=== PATIENT | female | born 1995 | race Caucasian/White ===

== ENCOUNTER 2018-10-05 18:27 | Emergency (ER) | payer SELFPAY ==
[~2018-10-05] VITALS: Ht 162.6 cm; Wt 59.0 kg
[2018-10-05] MEDS ORDERED: IV NORMAL SALINE 1000ML BAG 1,000 ML IV SCH (19:22)
[2018-10-05] MEDS ORDERED: ACETAMINOPHEN 500 MG TABLET PO ONE (19:30)
[2018-10-05] MEDS ORDERED: MORPHINE SULFATE 4 MG/ML VIAL. IV/SQ PRN (19:30)
[2018-10-05] MEDS ORDERED: cefTRIAXone IV Push 1 GM VIAL. IVP ONE (19:30)
[2018-10-05] MEDS ORDERED: AZITHRMYCN 500MG IVPB FOR OMNI 250 ML IV ONE (19:30)
[2018-10-05 19:38] LABS: BASO % 0 % (0-3); EOS % 0 % (0-3); HEMATOCRIT 36.7 % (36.0-47.0); HEMOGLOBIN 12.5 g/dL (12.0-15.5); LYMPH # 0.8 x10^3/uL (1.0-4.8); LYMPH % 8 % (24-48); MEAN CORPUSCULAR HEMOGLOBIN 31 pg (25-35); MEAN CORPUSCULAR HGB CONC 34 g/dL (31-37); MEAN CORPUSCULAR VOLUME 90 fL (79-100); MONO # 0.7 x10^3/uL (0.0-1.1); MONO % 7 % (0-9); NEUT % 86 % (31-73); PLATELET COUNT 236 x10^3/uL (140-400); RED BLOOD COUNT 4.09 x10^6/uL (3.50-5.40); RED CELL DISTRIBUTION WIDTH 13.2 % (11.5-14.5); WHITE BLOOD COUNT 10.5 x10^3/uL (4.0-11.0)
[2018-10-05 19:48] LABS: PROTHROMBIN TIME PATIENT 14.9 SEC (11.7-14.0)
[2018-10-05 19:51] LABS: CREATININE 0.8 mg/dL (0.6-1.0); GFR 89.7; POTASSIUM 4.6 mmol/L (3.5-5.1)
[2018-10-05 19:57] LABS: ALBUMIN 2.9 g/dL (3.4-5.0); ALBUMIN/GLOBULIN RATIO 0.7 (1.0-1.7); TOTAL BILIRUBIN 0.2 mg/dL (0.2-1.0); TOTAL PROTEIN 6.8 g/dL (6.4-8.2)
[2018-10-05 20:05] LABS: % BANDS 7 % (0-9); % LYMPHS 10 % (24-48); % MONOS 3 % (0-10); % SEGS 80 % (35-66); PLT ESTIMATE ADEQUATE (ADEQUATE)
[2018-10-05] MEDS ORDERED: IBUPROFEN 400 MG TABLET. PO ONE (22:00)
[2018-10-05 23:03] VITALS: BP 107/63
[2018-10-05 23:43] LABS: BILIRUBIN,URINE NEGATIVE (NEG); CLARITY,URINE CLEAR; COLOR,URINE YELLOW; NITRITE,URINE NEGATIVE (NEG); PROTEIN,URINE NEGATIVE (NEG-TRACE); UROBILINOGEN,URINE 0.2 mg/dL (0.2 mg/dL)
[2018-10-05 23:47] LABS: RBC,URINE 0 /HPF (0-2); SQUAMOUS EPITHELIAL CELL,UR MOD /LPF
[2018-10-05 23:48] LABS: BACTERIA,URINE 0 /HPF (0-FEW); BARBITURATES NEG (NEG); BENZODIAZEPINES NEG (NEG); CANNABINOIDS NEG (NEG); COCAINE NEG (NEG); METHADONE NEG (NEG); OPIATES POS (NEG); PHENCYCLIDINE NEG (NEG)
[2018-10-05 23:49] LABS: AMPHETAMINE/METHAMPHETAMINE POS (NEG)
[2018-10-06] MEDS ORDERED: CLIN300C8 PO (00:21)
--- NOTE | 2018-10-06 00:21 | PHYS DOC ---
Past Medical History Past Medical History: No Pertinent History Past Surgical History: Other Additional Past Surgical Histo: UKNOWN Alcohol Use: Rarely Drug Use: None Adult General Chief Complaint Chief Complaint: ABDOMINAL PAIN HPI HPI Patient is a 23 year old female who presents with severe pelvic pain. Patient states this pain has been going on for 2-3 days. She states she was seen at [facility] and was admitted for infection in her uterus and fallopian tubes. She states she did not like the care she was receiving hence walked out AGAINST MEDICAL ADVICE yesterday. Patient states she has continued having the pain. Denies any chance she is . Denies any nausea or vomiting. Review of Systems Review of Systems Constitutional: Denies fever or chills [] Eyes: Denies change in visual acuity, redness, or eye pain [] HENT: Denies nasal congestion or sore throat [] Respiratory: Denies cough or shortness of breath [] Cardiovascular: No additional information not addressed in HPI [] GI: Reports pelvic pain, denies nausea, vomiting, bloody stools or diarrhea [] : Denies dysuria or hematuria [] Musculoskeletal: Denies back pain or joint pain [] Integument: Denies rash or skin lesions [] Neurologic: Denies headache, focal weakness or sensory changes [] All other systems were reviewed and found to be within normal limits, except as documented in this note. Current Medications Current Medications Current Medications Medications (Trade) Dose Ordered Sig/Sd Start Time Stop Time Status Last Admin Dose Admin Acetaminophen (Tylenol) 1,000 mg 1X ONCE 10/05/18 19:30 10/05/18 19:35 DC 10/05/18 19:48 1,000 MG Azithromycin 250 ml @ 250 mls/hr 1X ONCE 10/05/18 19:30 10/05/18 20:29 DC 10/05/18 22:02 250 MLS/HR Ceftriaxone Sodium (Rocephin) 1 gm 1X ONCE 10/05/18 19:30 10/05/18 19:35 DC 10/05/18 19:49 1 GM Ibuprofen (Motrin) 800 mg 1X ONCE 10/05/18 22:00 10/05/18 22:01 DC 10/05/18 22:02 800 MG Ketorolac Tromethamine (Toradol 30mg Vial) 30 mg 1X ONCE 10/06/18 01:30 10/06/18 01:31 DC Levofloxacin/ Dextrose 150 ml @ 100 mls/hr 1X ONCE 10/05/18 19:30 10/05/18 20:59 DC 10/05/18 20:45 100 MLS/HR Metronidazole 100 ml @ 100 mls/hr 1X ONCE 10/05/18 19:30 10/05/18 20:29 DC 10/05/18 19:55 100 MLS/HR Morphine Sulfate (Morphine Sulfate) 5 mg 1X ONCE 10/06/18 01:30 10/06/18 01:31 DC 10/06/18 01:20 5 MG Sodium Chloride 1,000 ml @ 1,770 mls/hr Q34M 10/05/18 19:22 10/05/18 20:22 DC Allergies Allergies Allergies Coded Allergies Type Severity Reaction Last Updated Verified No Known Drug Allergies 08/31/14 No Physical Exam Physical Exam Constitutional: Well developed, well nourished, no acute distress, non-toxic appearance. [] HENT: Normocephalic, atraumatic, bilateral external ears normal, oropharynx moist, no oral exudates, nose normal. [] Eyes: PERRLA, EOMI, conjunctiva normal, no discharge. [] Neck: Normal range of motion, no tenderness, supple, no stridor. [] Cardiovascular:Tachycardia Lungs & Thorax: Bilateral breath sounds clear to auscultation [] Abdomen: Bowel sounds normal, soft, no masses, no pulsatile masses. [] Pelvic exam External pelvic appears normal, cervix is, closed, no CMT, tenderness to bilateral adnexal, trace amount of pink discharge in the vaginal vault. Skin: Warm, dry, no erythema, no rash. [] Back: No tenderness, no CVA tenderness. [] Extremities: No tenderness, no cyanosis, no clubbing, ROM intact, no edema. [] Neurologic: Alert and oriented X 3, normal motor function, normal sensory function, no focal deficits noted. [] Psychologic: Affect normal, judgement normal, mood normal. [] Current Patient Data Vital Signs Vital Signs Date Time Temp Pulse Resp B/P (MAP) Pulse Ox O2 Delivery O2 Flow Rate FiO2 10/06/18 01:20 9 10/05/18 23:03 124 107/63 (78) 99 Room Air 10/05/18 22:05 98.9 98.9 Lab Values Laboratory Tests Test 10/05/18 19:00 10/05/18 23:34 White Blood Count 10.5 x10^3/uL (4.0-11.0) Red Blood Count 4.09 x10^6/uL (3.50-5.40) Hemoglobin 12.5 g/dL (12.0-15.5) Hematocrit 36.7 % (36.0-47.0) Mean Corpuscular Volume 90 fL (79-100) Mean Corpuscular Hemoglobin 31 pg (25-35) Mean Corpuscular Hemoglobin Concent 34 g/dL (31-37) Red Cell Distribution Width 13.2 % (11.5-14.5) Platelet Count 236 x10^3/uL (140-400) Neutrophils (%) (Auto) 86 % (31-73) H Lymphocytes (%) (Auto) 8 % (24-48) L Monocytes (%) (Auto) 7 % (0-9) Eosinophils (%) (Auto) 0 % (0-3) Basophils (%) (Auto) 0 % (0-3) Neutrophils # (Auto) 9.0 x10^3uL (1.8-7.7) H Lymphocytes # (Auto) 0.8 x10^3/uL (1.0-4.8) L Monocytes # (Auto) 0.7 x10^3/uL (0.0-1.1) Eosinophils # (Auto) 0.0 x10^3/uL (0.0-0.7) Basophils # (Auto) 0.0 x10^3/uL (0.0-0.2) Segmented Neutrophils % 80 % (35-66) H Band Neutrophils % 7 % (0-9) Lymphocytes % 10 % (24-48) L Monocytes % 3 % (0-10) Platelet Estimate Adequate (ADEQUATE) Prothrombin Time 14.9 SEC (11.7-14.0) H Prothrombin Time INR 1.2 (0.8-1.1) H PTT 35 SEC (24-38) Sodium Level 138 mmol/L (136-145) Potassium Level 4.6 mmol/L (3.5-5.1) Chloride Level 103 mmol/L (98-107) Carbon Dioxide Level 28 mmol/L (21-32) Anion Gap 7 (6-14) Blood Urea Nitrogen 10 mg/dL (7-20) Creatinine 0.8 mg/dL (0.6-1.0) Estimated GFR (Cockcroft-Gault) 89.7 BUN/Creatinine Ratio 13 (6-20) Glucose Level 121 mg/dL (70-99) H Lactic Acid Level 1.4 mmol/L (0.4-2.0) Calcium Level 9.0 mg/dL (8.5-10.1) Total Bilirubin 0.2 mg/dL (0.2-1.0) Aspartate Amino Transferase (AST) 13 U/L (15-37) L Alanine Aminotransferase (ALT) 13 U/L (14-59) L Alkaline Phosphatase 73 U/L (46-116) Total Protein 6.8 g/dL (6.4-8.2) Albumin 2.9 g/dL (3.4-5.0) L Albumin/Globulin Ratio 0.7 (1.0-1.7) L Lipase 61 U/L (73-393) L Procalcitonin < 0.10 ng/mL (0.00-0.10) Ethyl Alcohol Level < 10 mg/dL (0-10) Urine Collection Type Unknown Urine Color Yellow Urine Clarity Clear Urine pH 6.0 Urine Specific Gable <=1.005 Urine Protein Negative mg/dL (NEG-TRACE) Urine Glucose (UA) Negative mg/dL (NEG) Urine Ketones (Stick) Negative mg/dL (NEG) Urine Blood Moderate (NEG) Urine Nitrite Negative (NEG) Urine Bilirubin Negative (NEG) Urine Urobilinogen Dipstick 0.2 mg/dL (0.2 mg/dL) Urine Leukocyte Esterase Small (NEG) Urine RBC 0 /HPF (0-2) Urine WBC 5-10 /HPF (0-4) Urine Squamous Epithelial Cells Mod /LPF Urine Bacteria 0 /HPF (0-FEW) Urine Opiates Screen Pos (NEG) Urine Methadone Screen Neg (NEG) Urine Barbiturates Neg (NEG) Urine Phencyclidine Screen Neg (NEG) Urine Amphetamine/Methamphetamine Pos (NEG) Urine Benzodiazepines Screen Neg (NEG) Urine Cocaine Screen Neg (NEG) Urine Cannabinoids Screen Neg (NEG) Urine Ethyl Alcohol Neg (NEG) Laboratory Tests 10/05/18 19:00 Laboratory Tests 10/05/18 19:00 Microbiology 10/05/18 Wet Prep - Final, Complete EKG EKG [] Radiology/Procedures Radiology/Procedures [] Course & Med Decision Making Course & Med Decision Making Pertinent Labs and Imaging studies reviewed. (See chart for details) This is a 23-year-old female patient presenting to the ED today complaining of pelvic pain, patient states she was diagnosed with infection in her fallopian tubes and uterus at [facility] and was hospitalized, she states yesterday she walked out AGAINST MEDICAL ADVICE because she did not like the care she was receiving. She arrives in the ED complaining of pelvic pain. Vitals on arrival to the ED temperature 100.0 heart rate 138 respiration 26 on room air blood pressure 107/61 O2 sats 99% on room air. Patient was started on the sepsis protocol and given Levaquin, Rocephin IV, azithromycin and Flagyl IV. Patient was also given weight-based sepsis protocol IV fluids, we used an actual weight because her BMI is less than 30 CBC with normal WBC, CMP with no acute findings. Lactic is normal. Urine analysis is noted for small amount of leukocytes. Wet prep is negative. Drug screen noted for methamphetamine use-probably one of the reasons for her tachycardia Pelvic ultrasound was noted for a dilated tubular structures at both adnexa f illed with complex fluid this could represent hematosalpinx or pyosalpinx. Consulted with Dr. Beaver about patient results including labs, ultrasound results and vitals and measures taken in the Ed including IV fluids, antibioticss. She requested we discharge patient to home with clindamycin 300 mg 3 times a day and she can follow-up with her COMPUTER LANGUAGE CODER or Dr. Beaver. I went to give patient results. She was resting comfortably with the boyfriend laying on her side and willing to go home I went to revaluate patient, found her comfortable on the bed with HR of 114 improved from 130s. I personally asked patient how she feels about going home. Patient states she is okay going home if we can promise her condition would not regress. Informed patient if she takes all her antibiotics as prescribed there is less likely for regression considering she has been given alot of antibiotics for the last two day. Also informed she needs to call her COMPUTER LANGUAGE CODER tomorrow to set up an outpatient follow-up appointment. Patient at this point okay with discharge. She'll be given Toradol and morphine before being discharged. She has a significant other in the room. Advised not to have any intercourse until noah ent has been reevaluated been COMPUTER LANGUAGE C[employer]ER. 10/06/2018 15:38-Called patient to see how she doing, Mother states she was was doing much better, is taking Clindamycin, and feels better. Mother states they have not made an appointment with any OBGYN yet but they plan to call one. Carla Disclaimer Dragon Disclaimer This electronic medical record was generated, in whole or in part, using a voice recognition dictation system. Departure Departure Impression: Primary Impression: Hematosalpinx Additional Impressions: UTI (urinary tract infection) Fever Tachycardia Methamphetamine abuse Disposition: HOME, SELF-CARE Condition: STABLE Referrals: NO PCP (PCP) CARLA CHI MD follow up in 2-7 days with your OBGYN or the one we provided Patient Instructions: Fever, Adult, [id number], Urinary Tract Infection Additional Instructions: You were evaluated in the emergency room an noted to have infection in your fallopian tubes. We put you on antibiotics, take them as prescribed until completed. Please push fluids. Please follow-up with your COMPUTER LANGUAGE CODER or the provided COMPUTER LANGUAGE CODER in the next 7 days. Please ensure you take Tylenol/Motrin for pain and fever. Scripts Hydrocodone/Apap 5-325 (NORCO 5-325 TABLET) 1 Each Tablet 1 TAB PO Q6HRS, #8 TAB Prov: LORENA MEANS APRN 10/06/18 Clindamycin Hcl (CLINDAMYCIN HCL) 300 Mg Capsule 1 CAP PO TID, #21 CAP Prov: LORENA MEANS APRN 10/06/18 Date and Time of Reassessment Date: October 05, 2018 Time: 21:30 Fluid Challenge Is the fluid challenge complet: Yes IBW Target Volume Used: Yes BMI > 30: No Vital Signs Vital Signs: Vital Signs Date Time Temp Pulse Resp B/P (MAP) Pulse Ox O2 Delivery O2 Flow Rate FiO2 10/06/18 01:20 9 10/05/18 23:03 124 107/63 (78) 99 Room Air 10/05/18 22:05 98.9 98.9 Temperature Source: Oral Respirations Respiratory Effort: Normal Respiratory Pattern: Normal Cardiovascular Pulse Rhythm: Regular Heart: Nml rate, reg. rhythm Lung Sounds Breath Sounds: Clear Capillary Refil Capillary Refill: Rt Hand < 3 seconds Peripheral Pulse Pulse Location: Monitor Pulse Strength: Normal (2+) Pulse Assessment Method: NIBP Integumentary Skin: Warm Skin Moisture: Dry Skin Turgor: Normal Skin Color: warm Fingernail Color: WNL Problem Qualifiers Additional Impressions: UTI (urinary tract infection) Urinary tract infection type: acute cystitis Hematuria presence: without hematuria Qualified Codes: N30.00 - Acute cystitis without hematuria Fever Fever type: unspecified Qualified Codes: R50.9 - Fever, unspecified MUTUNGA,LORENA TECHNOLOGY LEAD October 06, 2018 00:21
[2018-10-06] MEDS ORDERED: HYDR-3164 PO (01:00)
[2018-10-06] MEDS ORDERED: KETOROLAC 30 MG/ML VIAL. IV ONE (01:30)
[2018-10-06] MEDS ORDERED: MORPHINE SULFATE 10 MG/ML VIAL. IV ONE (01:30)
--- NOTE | 2018-10-06 08:32 | RAD ---
No comparison available. Clinical indication: Pelvic pain. History of uterine infection. FINDINGS: Transabdominal and transvaginal imaging was performed. The uterus measures 5.6 x 2.4 x 4.0 cm. No focal uterine mass. Endometrial complex is normal in thickness for age measuring 1 mm. Right ovary measures 3.7 x 1.9 x 3.2 cm. Cystic focus at the right ovary measures up to 1.9 cm. Left ovary measures 3.3 x 2.2 x 1.9 cm. There are small follicles of the left ovary. Dilated tubular structures at both adnexa with low-level internal echoes. Small amount of free fluid. IMPRESSION: 1. Dilated tubular structures at both adnexa filled with complex fluid. This could represent hematosalpinx or pyosalpinx. Correlate clinically. 2. Small amount of free fluid. 3. Small cysts or dominant follicles of each ovary. 4. Normal sonographic appearance of the uterus. Electronically signed by: Jorge Padilla MD (10/05/2018 10:56 PM) [facility]
[2018-10-07 14:12] LABS: GC PROBE Positive (Negative)
== END 2018-10-06 01:53 | disposition home or self-care (01) ==
LOC: ER 18:27
DX: N30.00 Acute cystitis without hematuria (principal); R50.9 Fever, unspecified; R00.0 Tachycardia, unspecified; N83.6 Hematosalpinx; F15.10 Other stimulant abuse, uncomplicated
CPT/HCPCS: 36415; 76830; 76856; 80053; 80307; 81001; 83605; 83690; 84145; 85007; 85025; 85610; 85730; 87040; 87086; 87491; 87591; 96365; 96367; 96368; 96375; 96376; 99285; G0480; J0456; J0696; J1956; J2270; J3490; Q0111

== ENCOUNTER 2019-02-24 07:58 | Inpatient (IN) | payer SELFPAY ==
[2019-02-24] VITALS (13 sets, daily range): BP systolic 81–107; BP diastolic 37–75
[~2019-02-24] VITALS: Ht 162.6 cm; Wt 59.0 kg
[~2019-02-24 07:58] MED LIST: CLIN300C8 PO; HYDR-3164 PO
--- NOTE | 2019-02-24 08:12 | PHYS DOC ---
Past Medical History Past Medical History: No Pertinent History Past Surgical History: Other Additional Past Surgical Histo: UKNOWN Alcohol Use: Rarely Drug Use: None Adult General Chief Complaint Chief Complaint: ABDOMINAL PAIN IN HPI HPI 23-year-old female presents to the emergency department with complaints of abdominal pain. Patient states she had a positive test 2 weeks ago. She describes vaginal bleeding yesterday with worsening abdominal pain today. Describes the pain as stabbing, nausea, vomiting. Unknown her last menstrual period. States she has irregular periods. She denies any previous . Nothing makes her pain worse, nothing makes her pain better. Review of Systems Review of Systems Constitutional: Denies fever or chills [] Respiratory: Denies cough or shortness of breath [] Cardiovascular: No additional information not addressed in HPI [] GI: + abdominal pain, nausea, vomiting, no bloody stools or diarrhea [] : Denies dysuria or hematuria [] Musculoskeletal: Denies back pain or joint pain [] Integument: Denies rash or skin lesions [] Neurologic: Denies headache, focal weakness or sensory changes [] All other systems were reviewed and found to be within normal limits, except as documented in this note. Current Medications Current Medications Current Medications Medications (Trade) Dose Ordered Sig/[facility] Start Time Stop Time Status Last Admin Dose Admin Morphine Sulfate (Morphine Sulfate) 2 mg 1X ONCE 02/24/19 08:15 02/24/19 08:19 DC 02/24/19 08:26 2 MG Ondansetron HCl (Zofran) 4 mg 1X ONCE 02/24/19 08:15 02/24/19 08:19 DC 02/24/19 08:26 4 MG Sodium Chloride 1,000 ml @ 100 mls/hr 1X ONCE 02/24/19 09:30 02/24/19 19:29 02/24/19 09:32 100 MLS/HR Allergies Allergies Allergies Coded Allergies Type Severity Reaction Last Updated Verified No Known Drug Allergies 08/31/14 No Physical Exam Physical Exam Constitutional: Well developed, well nourished, no acute distress, non-toxic appearance. [] HENT: Normocephalic, atraumatic, bilateral external ears normal, oropharynx moist, no oral exudates, nose normal. [] Eyes: PERRLA, EOMI, conjunctiva normal, no discharge. [] Cardiovascular:Heart rate regular rhythm, no murmur [] Lungs & Thorax: Bilateral breath sounds clear to auscultation [] Abdomen: soft, TTP throughout abdomen, no focal tenderness Skin: Warm, dry, no erythema, no rash. [] Back: No tenderness, no CVA tenderness. [] Extremities: No tenderness, no edema. [] Neurologic: Alert and oriented X 3, no focal deficits noted. [] Psychologic: Affect normal, judgement normal, mood normal. [] Current Patient Data Vital Signs Vital Signs Date Time Temp Pulse Resp B/P (MAP) Pulse Ox O2 Delivery O2 Flow Rate FiO2 02/24/19 08:26 27 02/24/19 08:06 98.2 79 122/69 (86) 97 Room Air 98.2 Lab Values Laboratory Tests Test 02/24/19 08:25 White Blood Count 9.8 x10^3/uL (4.0-11.0) Red Blood Count 5.08 x10^6/uL (3.50-5.40) Hemoglobin 15.7 g/dL (12.0-15.5) H Hematocrit 45.1 % (36.0-47.0) Mean Corpuscular Volume 89 fL (79-100) Mean Corpuscular Hemoglobin 31 pg (25-35) Mean Corpuscular Hemoglobin Concent 35 g/dL (31-37) Red Cell Distribution Width 14.7 % (11.5-14.5) H Platelet Count 285 x10^3/uL (140-400) Neutrophils (%) (Auto) 89 % (31-73) H Lymphocytes (%) (Auto) 8 % (24-48) L Monocytes (%) (Auto) 3 % (0-9) Eosinophils (%) (Auto) 0 % (0-3) Basophils (%) (Auto) 0 % (0-3) Neutrophils # (Auto) 8.6 x10^3/uL (1.8-7.7) H Lymphocytes # (Auto) 0.8 x10^3/uL (1.0-4.8) L Monocytes # (Auto) 0.3 x10^3/uL (0.0-1.1) Eosinophils # (Auto) 0.0 x10^3/uL (0.0-0.7) Basophils # (Auto) 0.0 x10^3/uL (0.0-0.2) Platelet Estimate Pending Maternal Serum HCG Beta Subunit < 1 mIU/mL (0-5) Sodium Level 139 mmol/L (136-145) Potassium Level 3.6 mmol/L (3.5-5.1) Chloride Level 100 mmol/L (98-107) Carbon Dioxide Level 26 mmol/L (21-32) Anion Gap 13 (6-14) Blood Urea Nitrogen 10 mg/dL (7-20) Creatinine 1.0 mg/dL (0.6-1.0) Estimated GFR (Cockcroft-Gault) 69.3 BUN/Creatinine Ratio 10 (6-20) Glucose Level 144 mg/dL (70-99) H Calcium Level 9.9 mg/dL (8.5-10.1) Total Bilirubin 0.7 mg/dL (0.2-1.0) Aspartate Amino Transferase (AST) 10 U/L (15-37) L Alanine Aminotransferase (ALT) 9 U/L (14-59) L Alkaline Phosphatase 67 U/L (46-116) Total Protein 8.4 g/dL (6.4-8.2) H Albumin 4.3 g/dL (3.4-5.0) Albumin/Globulin Ratio 1.0 (1.0-1.7) Laboratory Tests 02/24/19 08:25 Laboratory Tests 02/24/19 08:25 EKG EKG [] Radiology/Procedures Radiology/Procedures [] Course & Med Decision Making Course & Med Decision Making Pertinent Labs and Imaging studies reviewed. (See chart for details) []23-year-old female presents to the emergency department with complaints of abdominal pain. Patient states she had a positive test 2 weeks ago. She describes vaginal bleeding yesterday with worsening abdominal pain today. Describes the pain as stabbing, nausea, vomiting. Unknown her last menstrual period. States she has irregular periods. She denies any previous . Nothing makes her pain worse, nothing makes her pain better. Labs reviewed, hemoglobin 15.7, beta is less than 1. Ultrasound called report from radiology reveals evidence of hemoperitoneum moderate to large amount, likely from hemorrhagic cyst given beta hCG less than 1. Discussed findings with on-call THERMOSTAT REPAIRER, Dr. Henriquez - plan admit and observation, he will decide side if he needs to scope versus not. Recheck hgb this am 1030 Dragon Disclaimer Dragglenys Disclaimer This electronic medical record was generated, in whole or in part, using a voice recognition dictation system. Departure Departure Impression: Primary Impression: Hemoperitoneum Disposition: ADMITTED INPATIENT Condition: GUARDED Referrals: NO PCP (PCP) Additional Instructions: Discussed with SHEILA Alexandra MD Feb 24, 2019 08:12
[2019-02-24] MEDS ORDERED: MORPHINE SULFATE 2 MG/ML VIAL. IV ONE (08:15)
[2019-02-24] MEDS ORDERED: ONDANSETRON PF 4 MG/2 ML VIAL. IV ONE (08:15)
[2019-02-24 08:36] LABS: BASO % 0 % (0-3); EOS % 0 % (0-3); HEMATOCRIT 45.1 % (36.0-47.0); HEMOGLOBIN 15.7 g/dL (12.0-15.5); LYMPH # 0.8 x10^3/uL (1.0-4.8); LYMPH % 8 % (24-48); MEAN CORPUSCULAR HEMOGLOBIN 31 pg (25-35); MEAN CORPUSCULAR HGB CONC 35 g/dL (31-37); MEAN CORPUSCULAR VOLUME 89 fL (79-100); MONO # 0.3 x10^3/uL (0.0-1.1); MONO % 3 % (0-9); NEUT # 8.6 x10^3/uL (1.8-7.7); NEUT % 89 % (31-73); PLATELET COUNT 285 x10^3/uL (140-400); RED BLOOD COUNT 5.08 x10^6/uL (3.50-5.40); RED CELL DISTRIBUTION WIDTH 14.7 % (11.5-14.5); WHITE BLOOD COUNT 9.8 x10^3/uL (4.0-11.0)
[2019-02-24 08:43] LABS: CALCIUM 9.9 mg/dL (8.5-10.1); GFR 69.3; POTASSIUM 3.6 mmol/L (3.5-5.1)
[2019-02-24 08:49] LABS: ALBUMIN 4.3 g/dL (3.4-5.0); TOTAL BILIRUBIN 0.7 mg/dL (0.2-1.0); TOTAL PROTEIN 8.4 g/dL (6.4-8.2)
[2019-02-24] MEDS ORDERED: IV NORMAL SALINE 1000ML BAG 1,000 ML IV ONE (09:30)
--- NOTE | 2019-02-24 09:48 | RAD ---
PELVIS W/TV: 02/24/2019 8:55 AM INDICATION: 23 years old Female. Abdominal pain . Quantitative Beta-hCG is less than 1 COMPARISON: 10/05/2018. TECHNIQUE: Transabdominal and transvaginal sonographic evaluation of the pelvis was performed. Grayscale, color Doppler and spectral waveform analysis were utilized. FINDINGS: UTERUS: Size: 7.3 x 3.7 x 2.9 cm. Masses: None. Endometrium: 3.6 mm. No suspicious vascularity is identified. RIGHT OVARY: Poorly visualized, although suspected ovary measures 4.4 x 2.8 x 2.6. Difficult to confirm perfusion to the right ovary. LEFT OVARY: 4.8 x 4.6 x 3.7 cm. The left adnexa there is a fluid hematocrit level within a suspected cystic structure measuring 3.1 cm. Consideration may be given for hemorrhagic cyst. Perfusion is noted to the left ovary with arterial and venous waveform identified at the time of imaging. FREE FLUID: Moderate to large volume hemoperitoneum. URINARY BLADDER: Unremarkable. IMPRESSION: Moderate to large volume hemoperitoneum is noted. Findings may represent sequela of ruptured hemorrhagic cyst in the left adnexa. Perfusion of the left ovary is visualized. Right ovary is difficult to visualize although suspected right ovary measures 4.4 x 2.8 x 2.6 cm with questionable perfusion. Gynecologic consultation may be of benefit. FOR INTERNAL CODING PURPOSES Critical result: Findings discussed with SHEILA MARROQUIN at 02/24/2019 9:43 AM. RESULT CODE: (C) Electronically signed by: Remedios Hays MD (02/24/2019 9:45 AM) [id number]
[2019-02-24] MEDS ORDERED: ONDANSETRON PF 4 MG/2 ML VIAL. IV PRN ×2 (10:00→12:15)
[2019-02-24] MEDS ORDERED: MORPHINE SULFATE 2 MG/ML VIAL. IV PRN ×2 (10:00→12:15)
[2019-02-24 11:35] LABS: % LYMPHS 8 % (24-48); % MONOS 5 % (0-10); % SEGS 87 % (35-66); PLT ESTIMATE ADEQUATE (ADEQUATE)
[2019-02-24] MEDS ORDERED: IV RINGERS,LACTATED 1000ML 1,000 ML IV SCH (12:01)
[2019-02-24] MEDS ORDERED: HYDROmorphone 2 MG/ML VIAL IV PRN (12:15)
[2019-02-24] MEDS ORDERED: LIDOCAINE 1% PF 2 ML VIAL. ID PRN (12:15)
[2019-02-24] MEDS ORDERED: PROCHLORPERAZINE 10 MG/2 ML VIAL. IV PRN (12:15)
[2019-02-24] MEDS ORDERED: fentaNYL PF VIAL 100 MCG/2 ML VIAL IV PRN ×2 (12:15)
[2019-02-24] MEDS ORDERED: ePHEDrine PF IN SALINE 50 MG/10 ML SYRINGE. IV ONE (12:28)
[2019-02-24] MEDS ORDERED: KETOROLAC 30 MG/ML VIAL. ONE (12:29)
[2019-02-24] MEDS ORDERED: LIDOCAINE 2% PF 5 ML VIAL. ONE (12:29)
[2019-02-24] MEDS ORDERED: PROPOFOL 0 ML IV ONE (12:29)
[2019-02-24] MEDS ORDERED: DEXAMETHASONE SOD PHOS 4 MG/ML VIAL ONE (12:29)
[2019-02-24] MEDS ORDERED: ONDANSETRON PF 4 MG/2 ML VIAL. ONE (12:29)
[2019-02-24] MEDS ORDERED: fentaNYL PF VIAL 100 MCG/2 ML VIAL ONE (12:30)
[2019-02-24] MEDS ORDERED: MIDAZOLAM HCL/PF 2 MG/2 ML VIAL. ONE (12:30)
[2019-02-24] MEDS ORDERED: PROPOFOL 20 ML IV ONE (12:30)
[2019-02-24] MEDS ORDERED: ROCURONIUM 50 MG/5 ML VIAL. ONE (12:30)
--- NOTE | 2019-02-24 12:30 | NUR ---
Pt to surgery per bed for exploratory laparascopy. Consents signed and Dr. Henriquez at bedside explaining procedure.
[2019-02-24] MEDS ORDERED: BUPIVACAINE-EPI 0.5%-1:200000 MPF 30 ML VIAL. INJ ONE ×2 (13:00→13:30)
[2019-02-24] MEDS ORDERED: NEOSTIGMINE METHYLSULFATE 5 MG/5 ML SYRINGE. ONE (13:24)
[2019-02-24] MEDS ORDERED: SUCCINYLCHOLINE 200 MG/10 ML VIAL. ONE (13:24)
[2019-02-24] MEDS ORDERED: GLYCOPYRROLATE 1 MG/5 ML VIAL. ONE (13:25)
[2019-02-24 13:34] LABS: BILIRUBIN,URINE SMALL (NEG); CLARITY,URINE CLEAR; COLOR,URINE AMBER; NITRITE,URINE NEGATIVE (NEG); PROTEIN,URINE 30 mg/dL (NEG-TRACE)
[2019-02-24] MEDS ORDERED: ceFAZolin SODIUM 1 GM VIAL ONE (13:38)
[2019-02-24 13:45] LABS: SQUAMOUS EPITHELIAL CELL,UR MANY /LPF
[2019-02-24 13:46] LABS: BACTERIA,URINE MODERATE /HPF (0-FEW)
[2019-02-24] MEDS ORDERED: SEVOFLURANE 61 TO 120 MINUTES. IH ONE (13:52)
--- NOTE | 2019-02-24 13:57 | HP ---
ADMIT DATE: ADMISSION DIAGNOSIS: Abdominal pain, hemoperitoneum. HISTORY OF PRESENT ILLNESS: This 23-year-old nulliparous patient presented to the Emergency Department with abdominal pain. She stated she had a positive test 2 weeks ago. The patient does not know when her last menstrual period since they are irregular. The patient describes the pain as stabbing, cramping with some nausea. The patient never had these symptoms before. The patient denies any STDs. REVIEW OF SYSTEMS: Per HPI. CURRENT MEDICATIONS: None. ALLERGIES: No known drug allergies. PAST MEDICAL HISTORY: None. PAST SURGICAL HISTORY: None. FAMILY HISTORY: Noncontributory. SOCIAL HISTORY: Denies any illicit drug use. Occasional alcohol. PHYSICAL EXAMINATION: HEENT: Head is normocephalic, atraumatic. Pupils are equal, round, react to light. LUNGS: Clear to auscultation. ABDOMEN: Soft, scaphoid. SKIN: Warm and dry. BACK: No CVA tenderness. EXTREMITIES: No clubbing, cyanosis or edema. NEUROLOGIC: Intact. VITAL SIGNS: Temperature is 98.2, pulse 79, blood pressure 122/69, pulse 97. LABORATORY DATA: Hemoglobin 15.7, hematocrit 45. No other pertinent abnormalities. IMPRESSION: Abdominal pain, hemoperitoneum. PLAN: Diagnostic laparoscopy with indicated procedures. KAVITHA ELLIS MD DR: JOSSELIN/alysha JOB#: [id number] / [id number]
[2019-02-24] MEDS ORDERED: NALOXONE 0.4 MG/ML VIAL. IV PRN ×2 (14:30)
[2019-02-24] MEDS ORDERED: CALCIUM CARBONATE 500 MG TAB.CHEW PO PRN (14:30)
[2019-02-24] MEDS ORDERED: diphenhydrAMINE 50 MG/ML VIAL IV PRN (14:30)
[2019-02-24] MEDS ORDERED: DEXTROSE 50% 25 GM / 50ML DISP.SYRIN. IV PRN (14:30)
[2019-02-24] MEDS ORDERED: ZOLPIDEM 5 MG TABLET. PO PRN (14:30)
[2019-02-24] MEDS ORDERED: SIMETHICONE 80 MG TAB.CHEW PO PRN (14:30)
[2019-02-24] MEDS ORDERED: MAG HYDROX/ALUMINUM HYD/SIMETH 30 ML ORAL.SUSP PO PRN (14:30)
[2019-02-24] MEDS ORDERED: 0.9 % SODIUM CHLORIDE 10 ML DISP.SYRIN. IV PRN (14:30)
[2019-02-24] MEDS ORDERED: diphenhydrAMINE HCL 25 MG CAPSULE PO PRN (14:30)
--- NOTE | 2019-02-24 14:34 | PDOC ---
BRIEF OPERATIVE NOTE Pre-Op Diagnosis Pelvic pain Peritoneal fluid Post-Op Diagnosis Same Procedure Performed Lap diagnostic Surgeon Matrinez Anesthesia Type: General Blood Loss 10cc Specimens Obtained Peritoneal fluid Complications None KAVITHA ELLIS MD Feb 24, 2019 14:34
[2019-02-24] MEDS: IV NORMAL SALINE 1000ML BAG 1,000 ML IV SCH (14:37)
--- NOTE | 2019-02-24 15:40 | NUR ---
Pt returned from surgery with her mom at her side. Assessment completed and freq VS started. Pt reports feeling "better already". Will start on her on clear liquids and she how she tolerates. Will continue to monitor and support.
[2019-02-24] MEDS: PIPERACILLIN/TAZOBACTAM 3.375 GM in IV NORMAL SALINE 50ML 50 ML IV SCH ×2 (16:57→20:30)
[2019-02-24] MEDS: oxyCODONE/APAP 5/325 1 TAB TABLET PO PRN (20:02)
[2019-02-24] MEDS: KETOROLAC 30 MG/ML VIAL. IV PRN (20:02)
[2019-02-25] MEDS: PIPERACILLIN/TAZOBACTAM 3.375 GM in IV NORMAL SALINE 50ML 50 ML IV SCH ×5 (00:33→23:22)
--- NOTE | 2019-02-25 00:52 | OP ---
DATE OF SURGERY: 02/24/2019 PREOPERATIVE DIAGNOSIS: Pelvic pain with possible hemoperitoneum. POSTOPERATIVE DIAGNOSES: Pelvic pain, purulent fluid, approximately 100 mL in the pelvis consistent with infection, bilateral tubes were edematous with bilateral blunted fimbriae, this was consistent with a probable ruptured tubo-ovarian abscess. PROCEDURE: Diagnostic laparoscopy with suction irrigation of peritoneal fluid that was purulent. ANESTHESIA: General. ESTIMATED BLOOD LOSS: 10 mL. SPECIMENS: Peritoneal fluid/purulent for culture and sensitivity. COMPLICATIONS: None. FINDINGS: The patient had approximately 200-300 mL of purulent fluid in the pelvis on top of the uterus, underneath the uterus, and cul-de-sac covering the tubes and ovaries. This appeared to be fluid that would be consistent with a tubo-ovarian abscess or rupture; however, both ovaries appeared normal. The tubes appeared indurated and swollen with fimbriated ends that were blunted, but no gross evidence at this time of pyosalpinx. The appendix stump appeared normal. Left ovary was normal. Right ovary had some exudative material. The appendix stump was visualized and also appeared normal. No other abnormalities were noted. DESCRIPTION OF PROCEDURE: After risks, benefits, indications, alternatives discussed in detail with the patient. The patient was brought to OR theater, placed in the dorsal lithotomy position in [facility]. After adequate general anesthesia, the patient was prepped and draped in usual sterile manner. A sponge stick was placed in the vaginal vault. A small vertical infraumbilical incision was made sharply with a scalpel via the Visiport. A 5 mm trocar was placed without difficulty. Pneumoperitoneum was created. Two lateral 5 mm trocars were also placed, the above findings were noted. Laparoscopic needle was used to aspirate approximately 10 mL of the purulent material. This was taken off the operative field. This was done under direct visualization with care not to injure any structures. This was sent for culture and sensitivity. The fluid was then removed with suction irrigation. The tubes were inspected and noted to be edematous and swollen with no evidence of pyosalpinx appreciated. The tubes were followed to their distal end. ____ was called to come into the room to look at the tubes. He agreed and felt that at this time removing the tubes without direct evidence that they were full of purulent material, would not be necessary at this point of time. Approximately 200 mL of normal saline was left in the pelvis to help prevent adhesions and procedure was terminated. All laparoscopic instruments were removed. Pneumoperitoneum was allowed to dissipate. All trocar sleeves were removed. All incisions were infiltrated with 0.5% Marcaine with epinephrine and incisions were reapproximated with Dermabond. Sponge, needle, and instrument counts were correct x 2 per nursing staff. KAVITHA ELLIS MD DR: JOSSELIN/alysha JOB#: [id number] / [id number]
[2019-02-25 04:50] VITALS: BP 86/35
[2019-02-25] MEDS: KETOROLAC 30 MG/ML VIAL. IV PRN ×3 (04:53→19:36)
[2019-02-25] MEDS: DOCUSATE SODIUM 100 MG CAPSULE. PO PRN ×2 (05:20→17:11)
[2019-02-25] MEDS: oxyCODONE/APAP 5/325 1 TAB TABLET PO PRN ×4 (05:20→21:35)
[2019-02-25 05:50] LABS: BASO % 0 % (0-3); EOS % 0 % (0-3); HEMATOCRIT 33.4 % (36.0-47.0); HEMOGLOBIN 11.4 g/dL (12.0-15.5); LYMPH # 0.6 x10^3/uL (1.0-4.8); LYMPH % 6 % (24-48); MEAN CORPUSCULAR HEMOGLOBIN 31 pg (25-35); MEAN CORPUSCULAR HGB CONC 34 g/dL (31-37); MEAN CORPUSCULAR VOLUME 89 fL (79-100); MONO # 0.5 x10^3/uL (0.0-1.1); MONO % 6 % (0-9); NEUT # 7.7 x10^3/uL (1.8-7.7); NEUT % 87 % (31-73); PLATELET COUNT 223 x10^3/uL (140-400); RED BLOOD COUNT 3.74 x10^6/uL (3.50-5.40); RED CELL DISTRIBUTION WIDTH 14.6 % (11.5-14.5); WHITE BLOOD COUNT 8.9 x10^3/uL (4.0-11.0)
[2019-02-25 06:05] LABS: ALBUMIN 2.5 g/dL (3.4-5.0); ALBUMIN/GLOBULIN RATIO 0.8 (1.0-1.7); CALCIUM 8.4 mg/dL (8.5-10.1); CREATININE 0.9 mg/dL (0.6-1.0); GFR 78.3; POTASSIUM 4.3 mmol/L (3.5-5.1); TOTAL BILIRUBIN 0.2 mg/dL (0.2-1.0); TOTAL PROTEIN 5.8 g/dL (6.4-8.2)
--- NOTE | 2019-02-25 07:52 | PDOC ---
SURGICAL PROGRESS NOTE Subjective Pt. feeling better. Pain controlled. No fever overnight. Vital Signs Vital Signs Date Time Temp Pulse Resp B/P (MAP) Pulse Ox O2 Delivery O2 Flow Rate FiO2 02/25/19 04:50 97.9 73 18 86/35 (52) 95 Room Air 97.9 02/24/19 15:02 10 I&O Intake and Output 02/25/19 07:00 Intake Total 1460 ml Output Total 260 ml Balance 1200 ml Intake Oral 160 ml IV Total 1300 ml Output Urine Total 250 ml Estimated Blood Loss 10 ml PATIENT HAS A DOMINGUEZ: No General: Alert, Cooperative HEENT: Atraumatic Lungs: Clear to auscultation Heart: Regular rate Abdomen: Normal bowel sounds, Soft, No masses, Other (moderate tenderness to palpation.) Psych/Mental Status: Mental status NL Labs Laboratory Tests Test 02/24/19 08:25 02/24/19 10:25 02/24/19 11:00 02/25/19 05:40 White Blood Count 9.8 x10^3/uL (4.0-11.0) 8.9 x10^3/uL (4.0-11.0) Red Blood Count 5.08 x10^6/uL (3.50-5.40) 3.74 x10^6/uL (3.50-5.40) Hemoglobin 15.7 g/dL (12.0-15.5) 14.3 g/dL (12.0-15.5) 11.4 g/dL (12.0-15.5) Hematocrit 45.1 % (36.0-47.0) 33.4 % (36.0-47.0) Mean Corpuscular Volume 89 fL (79-100) 89 fL (79-100) Mean Corpuscular Hemoglobin 31 pg (25-35) 31 pg (25-35) Mean Corpuscular Hemoglobin Concent 35 g/dL (31-37) 34 g/dL (31-37) Red Cell Distribution Width 14.7 % (11.5-14.5) 14.6 % (11.5-14.5) Platelet Count 285 x10^3/uL (140-400) 223 x10^3/uL (140-400) Neutrophils (%) (Auto) 89 % (31-73) 87 % (31-73) Lymphocytes (%) (Auto) 8 % (24-48) 6 % (24-48) Monocytes (%) (Auto) 3 % (0-9) 6 % (0-9) Eosinophils (%) (Auto) 0 % (0-3) 0 % (0-3) Basophils (%) (Auto) 0 % (0-3) 0 % (0-3) Neutrophils # (Auto) 8.6 x10^3/uL (1.8-7.7) 7.7 x10^3/uL (1.8-7.7) Lymphocytes # (Auto) 0.8 x10^3/uL (1.0-4.8) 0.6 x10^3/uL (1.0-4.8) Monocytes # (Auto) 0.3 x10^3/uL (0.0-1.1) 0.5 x10^3/uL (0.0-1.1) Eosinophils # (Auto) 0.0 x10^3/uL (0.0-0.7) 0.0 x10^3/uL (0.0-0.7) Basophils # (Auto) 0.0 x10^3/uL (0.0-0.2) 0.0 x10^3/uL (0.0-0.2) Segmented Neutrophils % 87 % (35-66) Lymphocytes % 8 % (24-48) Monocytes % 5 % (0-10) Platelet Estimate Adequate (ADEQUATE) Maternal Serum HCG Beta Subunit < 1 mIU/mL (0-5) Sodium Level 139 mmol/L (136-145) 142 mmol/L (136-145) Potassium Level 3.6 mmol/L (3.5-5.1) 4.3 mmol/L (3.5-5.1) Chloride Level 100 mmol/L (98-107) 108 mmol/L (98-107) Carbon Dioxide Level 26 mmol/L (21-32) 28 mmol/L (21-32) Anion Gap 13 (6-14) 6 (6-14) Blood Urea Nitrogen 10 mg/dL (7-20) 14 mg/dL (7-20) Creatinine 1.0 mg/dL (0.6-1.0) 0.9 mg/dL (0.6-1.0) Estimated GFR (Cockcroft-Gault) 69.3 78.3 BUN/Creatinine Ratio 10 (6-20) 16 (6-20) Glucose Level 144 mg/dL (70-99) 116 mg/dL (70-99) Calcium Level 9.9 mg/dL (8.5-10.1) 8.4 mg/dL (8.5-10.1) Total Bilirubin 0.7 mg/dL (0.2-1.0) 0.2 mg/dL (0.2-1.0) Aspartate Amino Transf (AST/SGOT) 10 U/L (15-37) 8 U/L (15-37) Alanine Aminotransferase (ALT/SGPT) 9 U/L (14-59) 7 U/L (14-59) Alkaline Phosphatase 67 U/L (46-116) 49 U/L (46-116) Total Protein 8.4 g/dL (6.4-8.2) 5.8 g/dL (6.4-8.2) Albumin 4.3 g/dL (3.4-5.0) 2.5 g/dL (3.4-5.0) Albumin/Globulin Ratio 1.0 (1.0-1.7) 0.8 (1.0-1.7) Urine Collection Type Unknown Urine Color Irina Urine Clarity Clear Urine pH 7.0 Urine Specific [place] >=1.030 Urine Protein 30 mg/dL (NEG-TRACE) Urine Glucose (UA) Negative mg/dL (NEG) Urine Ketones (Stick) Trace mg/dL (NEG) Urine Blood Negative (NEG) Urine Nitrite Negative (NEG) Urine Bilirubin Small (NEG) Urine Urobilinogen Dipstick 1.0 mg/dL (0.2 mg/dL) Urine Leukocyte Esterase Trace (NEG) Urine RBC 3-5 /HPF (0-2) Urine WBC 5-10 /HPF (0-4) Urine Squamous Epithelial Cells Many /LPF Urine Bacteria Moderate /HPF (0-FEW) Urine Mucus Marked /LPF Laboratory Tests Test 02/24/19 08:25 02/24/19 10:25 02/24/19 11:00 02/25/19 05:40 White Blood Count 9.8 x10^3/uL (4.0-11.0) 8.9 x10^3/uL (4.0-11.0) Red Blood Count 5.08 x10^6/uL (3.50-5.40) 3.74 x10^6/uL (3.50-5.40) Hemoglobin 15.7 g/dL (12.0-15.5) 14.3 g/dL (12.0-15.5) 11.4 g/dL (12.0-15.5) Hematocrit 45.1 % (36.0-47.0) 33.4 % (36.0-47.0) Mean Corpuscular Volume 89 fL (79-100) 89 fL (79-100) Mean Corpuscular Hemoglobin 31 pg (25-35) 31 pg (25-35) Mean Corpuscular Hemoglobin Concent 35 g/dL (31-37) 34 g/dL (31-37) Red Cell Distribution Width 14.7 % (11.5-14.5) 14.6 % (11.5-14.5) Platelet Count 285 x10^3/uL (140-400) 223 x10^3/uL (140-400) Neutrophils (%) (Auto) 89 % (31-73) 87 % (31-73) Lymphocytes (%) (Auto) 8 % (24-48) 6 % (24-48) Monocytes (%) (Auto) 3 % (0-9) 6 % (0-9) Eosinophils (%) (Auto) 0 % (0-3) 0 % (0-3) Basophils (%) (Auto) 0 % (0-3) 0 % (0-3) Neutrophils # (Auto) 8.6 x10^3/uL (1.8-7.7) 7.7 x10^3/uL (1.8-7.7) Lymphocytes # (Auto) 0.8 x10^3/uL (1.0-4.8) 0.6 x10^3/uL (1.0-4.8) Monocytes # (Auto) 0.3 x10^3/uL (0.0-1.1) 0.5 x10^3/uL (0.0-1.1) Eosinophils # (Auto) 0.0 x10^3/uL (0.0-0.7) 0.0 x10^3/uL (0.0-0.7) Basophils # (Auto) 0.0 x10^3/uL (0.0-0.2) 0.0 x10^3/uL (0.0-0.2) Segmented Neutrophils % 87 % (35-66) Lymphocytes % 8 % (24-48) Monocytes % 5 % (0-10) Platelet Estimate Adequate (ADEQUATE) Maternal Serum HCG Beta Subunit < 1 mIU/mL (0-5) Sodium Level 139 mmol/L (136-145) 142 mmol/L (136-145) Potassium Level 3.6 mmol/L (3.5-5.1) 4.3 mmol/L (3.5-5.1) Chloride Level 100 mmol/L (98-107) 108 mmol/L (98-107) Carbon Dioxide Level 26 mmol/L (21-32) 28 mmol/L (21-32) Anion Gap 13 (6-14) 6 (6-14) Blood Urea Nitrogen 10 mg/dL (7-20) 14 mg/dL (7-20) Creatinine 1.0 mg/dL (0.6-1.0) 0.9 mg/dL (0.6-1.0) Estimated GFR (Cockcroft-Gault) 69.3 78.3 BUN/Creatinine Ratio 10 (6-20) 16 (6-20) Glucose Level 144 mg/dL (70-99) 116 mg/dL (70-99) Calcium Level 9.9 mg/dL (8.5-10.1) 8.4 mg/dL (8.5-10.1) Total Bilirubin 0.7 mg/dL (0.2-1.0) 0.2 mg/dL (0.2-1.0) Aspartate Amino Transf (AST/SGOT) 10 U/L (15-37) 8 U/L (15-37) Alanine Aminotransferase (ALT/SGPT) 9 U/L (14-59) 7 U/L (14-59) Alkaline Phosphatase 67 U/L (46-116) 49 U/L (46-116) Total Protein 8.4 g/dL (6.4-8.2) 5.8 g/dL (6.4-8.2) Albumin 4.3 g/dL (3.4-5.0) 2.5 g/dL (3.4-5.0) Albumin/Globulin Ratio 1.0 (1.0-1.7) 0.8 (1.0-1.7) Urine Collection Type Unknown Urine Color Irina Urine Clarity Clear Urine pH 7.0 Urine Specific [place] >=1.030 Urine Protein 30 mg/dL (NEG-TRACE) Urine Glucose (UA) Negative mg/dL (NEG) Urine Ketones (Stick) Trace mg/dL (NEG) Urine Blood Negative (NEG) Urine Nitrite Negative (NEG) Urine Bilirubin Small (NEG) Urine Urobilinogen Dipstick 1.0 mg/dL (0.2 mg/dL) Urine Leukocyte Esterase Trace (NEG) Urine RBC 3-5 /HPF (0-2) Urine WBC 5-10 /HPF (0-4) Urine Squamous Epithelial Cells Many /LPF Urine Bacteria Moderate /HPF (0-FEW) Urine Mucus Marked /LPF Problem List Problems Medical Problems: (1) Abdominal pain Status: Acute (2) Hemoperitoneum Status: Acute Assessment/Plan A: POD#1 s/p Dx LPSC PID P: Continue IV abx for next 2 days and until afebrile at least 36 hours. EVANGELIST DEVLIN Jr, MD Feb 25, 2019 07:52
[2019-02-25] MEDS: IV NORMAL SALINE 1000ML BAG 1,000 ML IV SCH ×3 (08:09→21:37)
[2019-02-25] MEDS: NICOTINE 21MG PATCH. TD PRN (08:18)
[2019-02-25 10:44] VITALS: BP_SYST 87; BP_SYST 88; BP_DIAS 47; BP_DIAS 48
[2019-02-25 11:14] LABS: BARBITURATES NEG (NEG); BENZODIAZEPINES POS (NEG); CANNABINOIDS POS (NEG); COCAINE NEG (NEG); METHADONE NEG (NEG); OPIATES POS (NEG); PHENCYCLIDINE NEG (NEG)
[2019-02-25 11:16] LABS: AMPHETAMINE/METHAMPHETAMINE POS (NEG)
--- NOTE | 2019-02-25 11:28 | NUR ---
Called positive UDS to Dr. Bolden on L&D. No new orders other than to continue her IVFs as ordered.
[2019-02-25 15:12] VITALS: BP 97/53
[2019-02-25 19:46] VITALS: BP 114/71
[2019-02-25] MEDS: LACTOBACILLUS RHAMNOSUS GG 1 CAPSULE. PO SCH (22:16)
[2019-02-25] MEDS: ONDANSETRON ODT 4 MG TAB.RAPDIS. PO PRN (22:26)
[2019-02-25 23:00] VITALS: BP 85/47
[2019-02-26] VITALS (7 sets, daily range): BP systolic 80–115; BP diastolic 41–82
[2019-02-26] MEDS: PIPERACILLIN/TAZOBACTAM 3.375 GM in IV NORMAL SALINE 50ML 50 ML IV SCH ×4 (05:30→23:26)
[2019-02-26] MEDS: ONDANSETRON ODT 4 MG TAB.RAPDIS. PO PRN (08:35)
[2019-02-26] MEDS: LACTOBACILLUS RHAMNOSUS GG 1 CAPSULE. PO SCH ×2 (08:35→20:43)
[2019-02-26] MEDS: oxyCODONE/APAP 5/325 1 TAB TABLET PO PRN ×2 (08:36→13:07)
[2019-02-26] MEDS: IV NORMAL SALINE 1000ML BAG 1,000 ML IV SCH ×2 (08:36→20:42)
[2019-02-26] MEDS ORDERED: MAGNESIUM HYDROXIDE 2,400 MG/30 ML ORAL.SUSP. PO PRN (09:15)
[2019-02-26] MEDS: NICOTINE 21MG PATCH. TD PRN (10:09)
[2019-02-26] MEDS: KETOROLAC 30 MG/ML VIAL. IV PRN ×2 (13:06→19:55)
--- NOTE | 2019-02-26 14:09 | PDOC ---
Provider Note Provider Note Improving S/P surgery for PID Afebrile Abd soft left shift CCC Vital Sign - Last 24 Hours 02/25/19 02/25/19 02/25/19 02/25/19 15:12 17:11 19:46 20:06 Temp 98.1 98.1 98.1 98.1 Pulse 89 110 Resp 16 16 B/P (MAP) 97/53 (68) 114/71 (85) Pulse Ox 97 96 O2 Delivery Room Air Room Air Room Air Room Air 02/25/19 02/25/19 02/25/19 02/26/19 21:35 22:24 23:00 03:39 Temp 97.8 97.8 97.8 97.8 Pulse 90 81 Resp 16 16 16 16 B/P (MAP) 85/47 (60) 80/41 (54) Pulse Ox 96 96 97 97 O2 Delivery Room Air Room Air Room Air Room Air 02/26/19 02/26/19 02/26/19 02/26/19 07:00 08:00 08:36 09:38 Temp 98.2 98.2 Pulse 100 Resp 18 B/P (MAP) 115/80 (92) Pulse Ox 100 O2 Delivery Room Air Room Air Room Air Room Air 02/26/19 02/26/19 12:00 13:07 Temp 98.2 98.2 Pulse 101 Resp 17 B/P (MAP) 115/82 (93) Pulse Ox 97 O2 Delivery Room Air Room Air Intake and Output 02/25/19 02/25/19 02/26/19 15:00 23:00 07:00 Intake Total 290 ml Balance 290 ml KAVITHA Dubois MD Feb 26, 2019 14:09
[2019-02-26] MEDS ORDERED: MAGNESIUM CITRATE 296 ML SOLUTION. PO PRN (14:45)
--- NOTE | 2019-02-26 21:46 | NUR ---
Positive sepsis screen, notified ICU and Dr Henriquez, no new orders at this time. Will continue to monitor.
[2019-02-27] MEDS: KETOROLAC 30 MG/ML VIAL. IV PRN ×2 (03:07→12:38)
[2019-02-27 03:21] VITALS: BP 114/81
[2019-02-27] MEDS: PIPERACILLIN/TAZOBACTAM 3.375 GM in IV NORMAL SALINE 50ML 50 ML IV SCH ×3 (05:21→15:22)
[2019-02-27 07:00] VITALS: BP 115/75
[2019-02-27] MEDS: LACTOBACILLUS RHAMNOSUS GG 1 CAPSULE. PO SCH (08:25)
[2019-02-27] MEDS: IV NORMAL SALINE 1000ML BAG 1,000 ML IV SCH ×2 (08:26→08:45)
[2019-02-27 10:43] VITALS: BP 106/69
--- NOTE | 2019-02-27 16:00 | NUR ---
Discharge Note: TASHIA DENNIS SACRAMENTO Discharge instructions and discharge home medications reviewed with Patient and a copy given. All questions have been answered and understanding verbalized. The following instructions and handouts were given: information about follow up appointments and medications. iscontinued lines and drains: IV line removed, catheter tip intact. Patient discharged to home with self care with friend, patient ambulated to discharge vehicle.
--- NOTE | 2019-03-08 00:34 | DS ---
DATE OF DISCHARGE: 02/27/2019 ADMITTING DIAGNOSIS: Hemoperitoneum. DISCHARGE DIAGNOSIS: Pelvic inflammatory disease. HOSPITAL COURSE: On hospital day #2, the patient went to surgery for possible hemoperitoneum. The patient underwent diagnostic laparoscopy with evacuation of PID. The patient was noted to have severe PID with some damage to the tubes bilaterally. Both ovaries looked normal. Surgery was uneventful with minimal blood loss. The patient was sent back up to the floor, started on IV antibiotics, which included Flagyl and Zosyn. The patient remained on IV antibiotics at the time of discharge, her white cell count remained stable at 8.9 range. The patient initially had a neutrophil count of 89 on discharge, it was down to 87. Her hemoglobin was 15.7, on discharge it was 11.4. The patient remained afebrile, normotensive. On hospital day #3, the patient was discharged home on Cipro and Flagyl for 14 days. The patient was also discharged home on Percocet #30. Routine discharge instructions were given. The patient is to follow up with me in 1 week. The patient was informed that any nausea, vomiting, fever, chills, pain above beyond which she is currently experiencing or any similar events that occurred before she was admitted to the hospital, she is to call my office or return to the ER. KAVITHA ELLIS MD DR: JOSSELIN/alysha JOB#: [id number] / [id number]
== END 2019-02-27 16:00 | disposition home or self-care (01) | DRG 759 ==
LOC: ER 07:58 → 3 NORTH 09:50
PROVIDERS: ADMIT Specialist; ATTEND Specialist
PROC: 0W9G4ZZ Drainage of Peritoneal Cavity, Percutaneous Endoscopic Approach (ICD-10-PCS; principal; 2019-02-24 13:00)
DX: N70.93 Salpingitis and oophoritis, unspecified (principal); N92.6 Irregular menstruation, unspecified
CPT/HCPCS: 36415; 76830; 76856; 80053; 80307; 81001; 83605; 84702; 85007; 85018; 85025; 86900; 86901; 87040; 87071; 87075; 87086; 96361; 96374; 96375; 96376; A7015; J0171; J0330; J0690; J1100; J1885; J2001; J2250; J2270; J2405; J2543; J2704; J2710; J3010; J3490; J7030; Q0162; 99285-25; G0378

== ENCOUNTER 2019-04-16 19:49 | Emergency (ER) | payer SELFPAY ==
[~2019-04-16] VITALS: Ht 162.6 cm; Wt 54.4 kg
[2019-04-16 20:26] VITALS: BP 138/98
== END 2019-04-16 20:50 | disposition left against medical advice (07) ==
LOC: ER 19:49 → EEVIPCON 19:49 → ER 20:50
DX: M25.512 Pain in left shoulder (principal); Z53.21 Procedure and treatment not carried out due to patient leaving prior to being seen by health care provider

== ENCOUNTER → 2019-09-09 | Emergency (ER) | payer SELFPAY | LOC: ER 23:55 | DX: Z20.2 Contact with and (suspected) exposure to infections with a predominantly sexual mode of transmission (principal); Z53.21 Procedure and treatment not carried out due to patient leaving prior to being seen by health care provider ==

== ENCOUNTER 2019-10-23 00:58 | Emergency (ER) | payer SELFPAY ==
[~2019-10-23] VITALS: Ht 162.6 cm; Wt 59.0 kg
[2019-10-23 01:14] VITALS: BP 122/57
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
--- NOTE | 2019-10-23 04:33 | RAD ---
INDICATION: Reason: injury / Spl. Instructions: / History: COMPARISON: None. IMPRESSION: Right hand: 3 views obtained. Mild ulnar negative variance. A ring is seen on the fourth digit which obscures portion of the proximal phalanx. At the base of the fifth middle phalanx there is a linear lucency on one images. This could be secondary to a vascular channel unless there is point tenderness to suggest nondisplaced fracture which is considered to be less likely. No evidence of dislocation. Left foot: 3 views obtained. Mildly displaced fracture is identified of the third, fourth and fifth metatarsals distally. Swelling of the soft tissues. Electronically signed by: Navneet Gifford MD (10/23/2019 4:29 AM) [id number]
[2019-10-23] MEDS ORDERED: HYDR-3164 PO (04:50)
[2019-10-23] MEDS ORDERED: HYDROcodone/APAP 5/325MG 1 TAB TABLET PO ONE (05:30)
--- NOTE | 2019-10-23 05:45 | RAD ---
INDICATION: Reason: FOOT Fractures (CT of FOOT Please) / Spl. Instructions: / History: COMPARISON: Plain film from earlier same day TECHNIQUE: Axial CT images obtained through the left foot. One or more of the following individualized dose reduction techniques were utilized for this examination: 1. Automated exposure control; 2. Adjustment of the mA and/or kV according to patient size; 3. Use of iterative reconstruction technique. FINDINGS: Acute mildly displaced fractures of the third, fourth and fifth metatarsals distally. There is adjacent swelling and blood within the soft tissues. IMPRESSION: * Third fourth and fifth acute mildly displaced metatarsal fractures with adjacent blood and swelling within the soft tissues. Electronically signed by: Navneet Gifford MD (10/23/2019 5:42 AM) [id number]
== END 2019-10-23 06:19 | disposition home or self-care (01) ==
LOC: ER 00:58
DX: S92.332A Displaced fracture of third metatarsal bone, left foot, initial encounter for closed fracture (principal); S92.342A Displaced fracture of fourth metatarsal bone, left foot, initial encounter for closed fracture; S92.352A Displaced fracture of fifth metatarsal bone, left foot, initial encounter for closed fracture; S60.221A Contusion of right hand, initial encounter; J45.909 Unspecified asthma, uncomplicated; F17.200 Nicotine dependence, unspecified, uncomplicated; V86.59XA Driver of other special all-terrain or other off-road motor vehicle injured in nontraffic accident, initial encounter; Y93.89 Activity, other specified; Y92.488 Other paved roadways as the place of occurrence of the external cause; Y99.8 Other external cause status
CPT/HCPCS: 29515; 73130; 73630; 73700; 99284-25

== ENCOUNTER 2019-12-28 18:36 | Emergency (ER) | payer SELFPAY ==
[~2019-12-28] VITALS: Ht 162.6 cm; Wt 65.9 kg
[2019-12-28 19:15] VITALS: BP 120/64
[2019-12-28 19:55] LABS: BILIRUBIN,URINE NEGATIVE (NEG); CLARITY,URINE CLEAR; COLOR,URINE YELLOW; NITRITE,URINE NEGATIVE (NEG); PROTEIN,URINE NEGATIVE (NEG-TRACE); UROBILINOGEN,URINE 0.2 mg/dL (0.2 mg/dL)
[2019-12-28 19:56] LABS: BACTERIA,URINE FEW /HPF (0-FEW); RBC,URINE 0 /HPF (0-2); SQUAMOUS EPITHELIAL CELL,UR MANY /LPF
[2019-12-28] MEDS ORDERED: METR500T PO (20:24)
[2019-12-28] MEDS ORDERED: DIPH25CA58 PO (20:24)
[2019-12-28] MEDS ORDERED: PRED50TA PO (20:24)
--- NOTE | 2019-12-28 20:24 | PHYS DOC ---
Past Medical History Past Medical History: Asthma, P.I.D. Past Surgical History: Tonsillectomy Additional Past Surgical Histo: "FALLOPIAN TUBES CLEANED OUT" D&C Smoking Status: Current Every Day Smoker Alcohol Use: Rarely Drug Use: None General Adult EDM: Chief Complaint: VAGINAL PROBLEM HPI: HPI: Patient is a 24 year old female who presents to the ED today complaining of vaginal irritation, swelling, symptoms began 3 days ago after using new soaps. Denies any concerns for STDs. Review of Systems: Review of Systems: Constitutional: Denies fever or chills. [] : Reports vaginal itching and irritation. Denies dysuria. [] Musculoskeletal: Denies back pain or joint pain. [] Integument: Denies rash. [] Neurologic: Denies headache, focal weakness or sensory changes. [] Psychiatric: Denies depression or anxiety. [] Heart Score: Risk Factors: Risk Factors: DM, Current or recent (<one month) smoker, HTN, HLP, family history of CAD, obesity. Risk Scores: Score 0 - 3: 2.5% MACE over next 6 weeks - Discharge Home Score 4 - 6: 20.3% MACE over next 6 weeks - Admit for Clinical Observation Score 7 - 10: 72.7% MACE over next 6 weeks - Early Invasive Strategies Allergies: Allergies: Allergies Coded Allergies Type Severity Reaction Last Updated Verified No Known Drug Allergies 02/24/19 No Physical Exam: PE: Constitutional: Well developed, well nourished, no acute distress, non-toxic appearance. [] Abdomen: Bowel sounds normal, soft, no tenderness, no masses, no pulsatile masses. [] Pelvic exam Bilateral labia minora majora erythematous and swollen. Cervix is visualized, closed, no CMT, no adnexal tenderness. Small amount of white discharge in the vaginal vault. Skin: Warm, dry, no erythema, no rash. [] Back: No tenderness, no CVA tenderness. [] Extremities: No tenderness, no cyanosis, no clubbing, ROM intact, no edema. [] Neurologic: Alert and oriented X 3, normal motor function, normal sensory function, no focal deficits noted. [] Psychologic: Affect normal, judgement normal, mood normal. [] Current Patient Data: Labs: Laboratory Tests Test 12/28/19 18:37 8/13/20 18:49 Urine Collection Type Unknown Urine Color Yellow Urine Clarity Clear Urine pH 5.0 (<5.0-8.0) Urine Specific [place] 1.025 (1.000-1.030) Urine Protein Negative mg/dL (NEG-TRACE) Urine Glucose (UA) Negative mg/dL (NEG) Urine Ketones (Stick) Negative mg/dL (NEG) Urine Blood Negative (NEG) Urine Nitrite Negative (NEG) Urine Bilirubin Negative (NEG) Urine Urobilinogen Dipstick 0.2 mg/dL (0.2 mg/dL) Urine Leukocyte Esterase Small (NEG) Urine RBC 0 /HPF (0-2) Urine WBC 5-10 /HPF (0-4) Urine Squamous Epithelial Cells Many /LPF Urine Bacteria Few /HPF (0-FEW) Urine Mucus Mod /LPF POC Urine HCG, Qualitative Hcg negative (Negative) Microbiology 12/28/19 Wet Prep - Final, Complete Vital Signs: Vital Signs Date Time Temp Pulse Resp B/P (MAP) Pulse Ox O2 Delivery O2 Flow Rate FiO2 12/28/19 19:15 98.6 112 16 120/64 (82) 98 Room Air 98.6 EKG: EKG: [] Radiology/Procedures: Radiology/Procedures: [] Course & Med Decision Making: Course & Med Decision Making Pertinent Labs and Imaging studies reviewed. (See chart for details) This is a 24-year-old female patient presenting to the ED today complaining of vaginal irritation, swelling that began after using a new soap. Negative urine hCG, urine analysis appears contaminated. Wet prep positive for BV. Discharged on Flagyl. Given prescription for prednisone and Benadryl. Carla Disclaimer: Carla Disclaimer: This electronic medical record was generated, in whole or in part, using a voice recognition dictation system. Departure Departure Impression: Primary Impression: Contact dermatitis Qualified Codes: L25.9 - Unspecified contact dermatitis, unspecified cause Additional Impression: Bacterial vaginosis Disposition: 01 HOME, SELF-CARE Condition: STABLE Referrals: NO PCP (PCP) CARLA CHI MD follow up in 1-2 weeks Patient Instructions: Bacterial Vaginosis, [id number], Contact Dermatitis, [id number] Additional Instructions: You were evaluated in the emergency room for vaginal irritation and were also noted to have bacterial vaginosis. Please use the prescribed medications as ordered. Follow-up with your own doctor in 1 to 2 weeks Scripts Diphenhydramine Hcl (BENADRYL) 25 Mg Capsule 1 CAP PO Q6-8HRS PRN for RASH, #30 CAP 0 Refills Prov: LORENA MEANS APRN 12/28/19 Prednisone (PREDNISONE) 50 Mg Tablet 1 TAB PO DAILY, #5 TAB Prov: LORENA MEANS APRN 12/28/19 Metronidazole (FLAGYL) 500 Mg Tablet 1 TAB PO BID, #14 TAB Prov: LORENA MEANS APRN 12/28/19 Justicifation of Admission Dx: Justifications for Admission: Justification of Admission Dx: N/A LORENA MEANS APRN Dec 28, 2019 20:24
[2020-01-01 22:09] LABS: GC PROBE Negative (Negative)
== END 2019-12-28 20:34 | disposition home or self-care (01) ==
LOC: ER 18:36
DX: N76.0 Acute vaginitis (principal); B96.89 Other specified bacterial agents as the cause of diseases classified elsewhere; L25.9 Unspecified contact dermatitis, unspecified cause; R60.0 Localized edema; J45.909 Unspecified asthma, uncomplicated; F17.200 Nicotine dependence, unspecified, uncomplicated; Z90.89 Acquired absence of other organs; Z98.890 Other specified postprocedural states
CPT/HCPCS: 81001; 81025; 87491; 87591; 99284; Q0111

== ENCOUNTER 2020-02-12 20:14 | Emergency (ER) | payer SELFPAY ==
[~2020-02-12 20:14] MED LIST changes: +DIPH25CA58 PO; +METR500T PO; +PRED50TA PO
[2020-02-12 20:29] LABS: BILIRUBIN,URINE NEGATIVE (NEG); CLARITY,URINE CLEAR; COLOR,URINE YELLOW; NITRITE,URINE POSITIVE (NEG); PH,URINE 5.5 (<5.0-8.0); PROTEIN,URINE NEGATIVE (NEG-TRACE); UROBILINOGEN,URINE 0.2 mg/dL (0.2 mg/dL)
[2020-02-12 20:37] LABS: SQUAMOUS EPITHELIAL CELL,UR MOD /LPF
[2020-02-12 20:38] LABS: BACTERIA,URINE MANY /HPF (0-FEW); RBC,URINE 0 /HPF (0-2)
--- NOTE | 2020-02-12 20:48 | PHYS DOC ---
Past Medical History Past Medical History: Asthma, P.I.D. Past Surgical History: Tonsillectomy Additional Past Surgical Histo: "FALLOPIAN TUBES CLEANED OUT" D&C Smoking Status: Current Every Day Smoker Alcohol Use: Rarely Drug Use: None General Adult EDM: Chief Complaint: TEST HPI: HPI: Patient is a 24 year old female who presents to the ED today stating she is . She is requesting a test. She states her last menstrual cycle was 4 weeks ago. She states she gets a cycle every 6 of the month. She states maybe she is crazy but she has weird food cravings that makes her believe she is . Review of Systems: Review of Systems: Constitutional: Denies fever or chills. [] Eyes: Denies change in visual acuity. [] HENT: Denies nasal congestion or sore throat. [] Respiratory: Denies cough or shortness of breath. [] Cardiovascular: Denies chest pain or edema. [] GI: Request for test. Denies abdominal pain, nausea, vomiting, bloody stools or diarrhea. [] : Denies dysuria. [] Musculoskeletal: Denies back pain or joint pain. [] Integument: Denies rash. [] Neurologic: Denies headache, focal weakness or sensory changes. [] Psychiatric: Denies depression or anxiety. [] Heart Score: Risk Factors: Risk Factors: DM, Current or recent (<one month) smoker, HTN, HLP, family history of CAD, obesity. Risk Scores: Score 0 - 3: 2.5% MACE over next 6 weeks - Discharge Home Score 4 - 6: 20.3% MACE over next 6 weeks - Admit for Clinical Observation Score 7 - 10: 72.7% MACE over next 6 weeks - Early Invasive Strategies Allergies: Allergies: Allergies Coded Allergies Type Severity Reaction Last Updated Verified No Known Drug Allergies 02/24/19 No Physical Exam: PE: Constitutional: Well developed, well nourished, no acute distress, non-toxic appearance. [] HENT: Normocephalic, atraumatic, bilateral external ears normal, oropharynx moist, no oral exudates, nose normal. [] Eyes: PERRLA, EOMI, conjunctiva normal, no discharge. [] Neck: Normal range of motion, no tenderness, supple, no stridor. [] Cardiovascular:Heart rate regular rhythm, no murmur [] Lungs & Thorax: Bilateral breath sounds clear to auscultation [] Abdomen: Bowel sounds normal, soft, no tenderness, no masses, no pulsatile masses. [] Skin: Warm, dry, no erythema, no rash. [] Back: No tenderness, no CVA tenderness. [] Extremities: No tenderness, no cyanosis, no clubbing, ROM intact, no edema. [] Neurologic: Alert and oriented X 3, normal motor function, normal sensory function, no focal deficits noted. [] Psychologic: flat affect, appears anxious Current Patient Data: Labs: Laboratory Tests Test 02/12/20 20:19 02/12/20 20:28 Urine Collection Type Unknown Urine Color Yellow Urine Clarity Clear Urine pH 5.5 (<5.0-8.0) Urine Specific [place] >=1.030 (1.000-1.030) Urine Protein Negative mg/dL (NEG-TRACE) Urine Glucose (UA) Negative mg/dL (NEG) Urine Ketones (Stick) Trace mg/dL (NEG) Urine Blood Negative (NEG) Urine Nitrite Positive (NEG) Urine Bilirubin Negative (NEG) Urine Urobilinogen Dipstick 0.2 mg/dL (0.2 mg/dL) Urine Leukocyte Esterase Negative (NEG) Urine RBC 0 /HPF (0-2) Urine WBC 5-10 /HPF (0-4) Urine Squamous Epithelial Cells Mod /LPF Urine Bacteria Many /HPF (0-FEW) Urine Mucus Marked /LPF POC Urine HCG, Qualitative Hcg negative (Negative) EKG: EKG: [] Radiology/Procedures: Radiology/Procedures: [] Course & Med Decision Making: Course & Med Decision Making Pertinent Labs and Imaging studies reviewed. (See chart for details) This is a 24-year-old female patient presenting to the ED today requesting a test. Last menstrual cycle she reports was 4 weeks ago. Negative urine hCG. Patient was provided an SKIMMER for follow-up. She requested lab work for . Informed with a urine hcg that is negative at 4 weeks beta hcg will be negative as well. She continues to insist she is because she has weird cravings. She left AMA. Carla Disclaimer: Carla Disclaimer: This electronic medical record was generated, in whole or in part, using a voice recognition dictation system. Departure Departure Impression: Primary Impression: UTI (urinary tract infection) Additional Impression: Negative test Disposition: 07 AGAINST MEDICAL ADVICE Condition: STABLE Referrals: NO PCP (PCP) Justicifation of Admission Dx: Justifications for Admission: Justification of Admission Dx: N/A LORENA MEANS APRN Feb 12, 2020 20:48
== END 2020-02-12 20:45 | disposition left against medical advice (07) ==
LOC: ER 20:14
DX: N39.0 Urinary tract infection, site not specified (principal); J45.909 Unspecified asthma, uncomplicated; F17.200 Nicotine dependence, unspecified, uncomplicated; Z90.89 Acquired absence of other organs; Z98.890 Other specified postprocedural states
CPT/HCPCS: 81001; 81025; 87086; 99283